=== PATIENT | male | born 1995 | race Caucasian/White ===

== ENCOUNTER 2017-01-10 02:18 | Emergency (ER) | payer OTHER ==
[~2017-01-10] VITALS: Ht 177.8 cm; Wt 79.5 kg
--- NOTE | 2017-01-10 05:30 | REPUSA ---
CLINICAL HISTORY: Head trauma. TECHNIQUE: Multiple axial brain CT scan sections were obtained from base to vertex without contrast a dministration. COMMENTS: There is no evidence of skull fracture. The study shows normal configuration of sella turcica. There are no intra or extra-axial collections. There is no mass effect or midline shift. There is no evidence of hematoma formation. No hydrocephal us is present. No abnormal calcifications are noted. No significant abnormalities are seen either in the posterior fossa or supratentorial compartment. The sinuses and mastoid air cells are patent. Right parietal subgaleal soft tissue hematoma. IMPRESSION: No evidence of acute intracranial pathology. No intracranial hemorrhage or skull fracture. Right parietal subgaleal soft tissue hematoma. Thank you for your kind referral of this patient.
--- NOTE | 2017-01-10 05:30 | REPUSA ---
HISTORY: Trauma. COMPARISON: Not provided. TECHNIQUE: Multiple thin section helically-acquired axially-displayed and helically acquired coronall y displayed computed tomographic images of the face are obtained from the mandible through the fronta l sinuses, with images obtained at soft tissue and bone window. 2D reformatted images were performed. FINDINGS: Acute nondisplaced fracture of the right orbital floor. Acute nondisplaced fracture of the anterior and posterior muniz of the right maxillary sinus. Right orbital emphysema. No muscular entrapment is seen. Normal oral and nasal cavities. Normal infratemporal fossa and deep parapharyngeal spaces with normal muscles of mastication. Normal parotid and submandibular glands. IMPRESSION: Acute nondisplaced fracture of the right orbital floor. Acute nondisplaced fracture of the anterior and posterior muniz of the right maxillary sinus. Right orbital emphysema. No muscular entrapment is seen. Thank you for your kind referral of this patient
[2017-01-10 06:05] VITALS: BP 132/62
[2017-01-10] MEDS ORDERED: AUGM875T28 PO (06:06)
== END 2017-01-10 06:18 | disposition home or self-care (01) ==
LOC: M ED 02:18
DX: S02.31XA Fracture of orbital floor, right side, initial encounter for closed fracture (principal); S02.40CA Maxillary fracture, right side, initial encounter for closed fracture; S01.01XA Laceration without foreign body of scalp, initial encounter; Y04.8XXA Assault by other bodily force, initial encounter; Y92.511 Restaurant or cafe as the place of occurrence of the external cause; Y93.89 Activity, other specified; Y99.8 Other external cause status

== ENCOUNTER → 2017-06-18 | Outpatient (REF) | payer OTHER ==
[2017-06-18 22:11] LABS: CHLAMYDIA DNA AMPLIFICATION NEGATIVE (NEGATIVE); GC DNA AMPLIFICATION NEGATIVE (NEGATIVE)
== END ==
LOC: M SFHCLERA 17:59
DX: Z20.2 Contact with and (suspected) exposure to infections with a predominantly sexual mode of transmission (principal)

== ENCOUNTER → 2017-08-16 | Outpatient (REF) | payer OTHER ==
[2017-08-16 18:02] LABS: CHLAMYDIA DNA AMPLIFICATION NEGATIVE (NEGATIVE); GC DNA AMPLIFICATION NEGATIVE (NEGATIVE)
== END ==
LOC: M SFHCLERA 14:26
DX: Z20.2 Contact with and (suspected) exposure to infections with a predominantly sexual mode of transmission (principal)

== ENCOUNTER → 2017-09-19 | Outpatient (REF) | payer OTHER ==
[2017-09-19 19:14] LABS: APPEARANCE, URINE CLEAR (CLEAR); BACTERIA, URINE AUTO NEGATIVE (NEGATIVE); BILIRUBIN, URINE AUTO NEGATIVE (NEGATIVE); BLOOD, URINE BLOOD NEGATIVE (NEGATIVE); COLOR, URINE YELLOW (YELLOW); GLUCOSE, URINE (UA) AUTO NEGATIVE (NEGATIVE); KETONE, URINE AUTO NEGATIVE (NEGATIVE); LEUKOCYTE ESTERASE, URINE AUTO NEGATIVE (NEGATIVE); MUCUS, URINE SMALL (NEGATIVE); NITRITE, URINE AUTO NEGATIVE (NEGATIVE); PROTEIN, URINE AUTO NEGATIVE (NEGATIVE); RBC, URINE AUTO 3 /HPF (0-3); SPECIFIC GRAVITY URINE AUTO 1.026 (1.002-1.035); SQUAMOUS EPITHELIAL CELL UR AU 0 /HPF (0-6); WBC, URINE AUTO 0 /HPF (0-3)
[2017-09-19 20:56] LABS: CHLAMYDIA DNA AMPLIFICATION NEGATIVE (NEGATIVE); GC DNA AMPLIFICATION NEGATIVE (NEGATIVE)
== END ==
LOC: M SFHCLERA 17:52
DX: R30.0 Dysuria (principal)

== ENCOUNTER 2018-02-11 19:46 | Emergency (ER) | payer OTHER | END 2018-02-11 21:40 | disposition home or self-care (01) | LOC: M ED 19:46 | DX: S43.52XA Sprain of left acromioclavicular joint, initial encounter (principal); X50.0XXA Overexertion from strenuous movement or load, initial encounter; Y92.138 Other place on military base as the place of occurrence of the external cause; Y93.B3 Activity, free weights | CPT/HCPCS: 73030 ==

== ENCOUNTER → 2018-03-29 | Outpatient (REF) | payer OTHER ==
[~2018-03-29] MED LIST: AUGM875T28 PO
[2018-03-30 00:14] LABS: CHLAMYDIA DNA AMPLIFICATION NEGATIVE (NEGATIVE); GC DNA AMPLIFICATION NEGATIVE (NEGATIVE)
[2018-03-30 11:48] LABS: HIV 1&2 SCREEN CENTAUR NEGATIVE (NEGATIVE)
== END ==
LOC: M SFHCLERA 16:13
PROVIDERS: ATTEND Physician Assistant
DX: Z20.9 Contact with and (suspected) exposure to unspecified communicable disease (principal)
CPT/HCPCS: 86780; 87389; 87491; 87591; G0463

== ENCOUNTER 2018-10-08 15:31 | Emergency (ER) | payer OTHER, SELFPAY ==
[~2018-10-08] VITALS: Ht 177.8 cm; Wt 80.1 kg
[2018-10-08 16:57] VITALS: BP 129/80
--- NOTE | 2018-10-09 07:27 | REP ---
CT BRAIN WITHOUT IV CONTRAST: CT brain performed without IV contrast. Ventricles are normal in size and position with no midline shift or mass effect. Grant-white differentiation is well maintained. There is no acute intracranial hemorrhage or extra-axial fluid collection. No skull fracture is seen. IMPRESSION: Negative noncontrast CT brain. Electronically Signed by Rohan Grant MD 10/09/2018 04:15 P
--- NOTE | 2018-10-09 07:29 | REP ---
CT CERVICAL SPINE: CT cervical spine performed in the axial plane with sagittal and coronal and reconstruction images. There is no fracture or dislocation. Vertebral bodies are normal in height and are well aligned with normal cervical lordosis. There is no prevertebral soft tissue swelling. Disc spaces are relatively well preserved. No abnormal density is seen in the spinal canal. IMPRESSION: No evidence of acute fracture or dislocation. Electronically Signed by Rohan Grant MD 10/09/2018 04:16 P
--- NOTE | 2018-10-09 07:31 | REP ---
CT MAXILLOFACIAL BONES: CT maxillofacial bones performed in the axial plane. Sagittal and coronal reconstruction images are performed. No acute fracture is seen of the maxillofacial bones. Mandible and zygomatic arches are intact. Orbit is intact. The globes themselves are intact. Paranasal sinuses demonstrate no abnormal opacification. Mastoid air cells are clear. IMPRESSION: No evidence of maxillofacial bone fracture. Electronically Signed by Rohan Grant MD 10/09/2018 04:16 P
== END 2018-10-08 16:59 | disposition home or self-care (01) ==
LOC: M ED 15:31
DX: S00.81XA Abrasion of other part of head, initial encounter (principal); S00.83XA Contusion of other part of head, initial encounter; R55 Syncope and collapse; Y04.0XXA Assault by unarmed brawl or fight, initial encounter; Y92.89 Other specified places as the place of occurrence of the external cause